=== PATIENT | male | born 1960 | race Caucasian/White ===

== ENCOUNTER 2016-05-14 11:06 | Emergency (ER) | payer OTHER ==
[2016-05-14] MEDS ORDERED: IBUPROFEN 600 MG TAB PO ONE (11:38)
--- NOTE | 2016-05-14 12:05 | DX ---
Left Hand - 3 views 1139 a.m. Indication: Trauma. Pain. Technique: AP, oblique, and lateral views. Comparison: None Findings: The middle phalanx of the fourth finger is dislocated posteriorly. A tiny 1 mm bone chip re sides just distal to the head of the proximal phalanx and a nondisplaced fracture courses through the dorsal lip of the base of the middle phalanx. Mild soft tissue swelling overlies the dorsal carpal row. A 2 mm bone chip resides dorsal to the dist al row. The hand is otherwise normal. Impression: 1. Dislocated proximal interphalangeal joint of the fourth finger. 2. Tiny chip fracture at site of dislocation likely off base of middle phalanx. 3. Age indeterminate triquetral chip fracture.
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
--- NOTE | 2016-05-14 13:10 | DX ---
Left Fourth Finger, One View History: Postreduction evaluation. Comparison: Images performed earlier today. Findings: There is a 1.5 mm fracture fragment at the volar base of the middle phalanx fourth finger. The prior visualized dislocation has been reduced. Soft tissue swelling at the PIP joint. Impression: Reduction of the prior visualized dislocation with a small displaced fracture fragment at the volar base of the fourth middle phalanx.
[2016-05-14 13:36] VITALS: BP 159/64; PULSE 51; RESP 15; TEMP 97.9; O2SAT 96
== END 2016-05-14 13:36 | disposition home or self-care (01) ==
PROC: 0RSXXZZ Reposition Left Finger Phalangeal Joint, External Approach (ICD-10-PCS; principal; 2016-05-14)
DX: S63.285A Dislocation of proximal interphalangeal joint of left ring finger, initial encounter (principal); S62.115A Nondisplaced fracture of triquetrum [cuneiform] bone, left wrist, initial encounter for closed fracture; S62.625A Displaced fracture of middle phalanx of left ring finger, initial encounter for closed fracture; V18.4XXA Pedal cycle driver injured in noncollision transport accident in traffic accident, initial encounter; Y92.410 Unspecified street and highway as the place of occurrence of the external cause

== ENCOUNTER 2017-03-09 21:42 | Emergency (ER) | payer OTHER ==
[2017-03-09 21:48] VITALS: BP 161/101; PULSE 94; RESP 18; TEMP 97.5; O2SAT 99
[2017-03-09] MEDS ORDERED: LET GEL TOPICAL 1 EA SYR TP ONE (21:56)
[2017-03-09] MEDS ORDERED: AMOXICILLIN/CLAVULANATE POT 875/125 MG TAB PO ONE (22:07)
[2017-03-09] MEDS ORDERED: TDAP ADULT 0.5 ML INJ (BOOSTRIX) IM ONE (22:07)
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
== END 2017-03-09 22:41 | disposition home or self-care (01) ==
DX: S81.852A Open bite, left lower leg, initial encounter (principal); Z23 Encounter for immunization; W54.0XXA Bitten by dog, initial encounter; Y92.410 Unspecified street and highway as the place of occurrence of the external cause; Y99.8 Other external cause status; Y93.55 Activity, bike riding